=== PATIENT | male | born 1945 | race Two or more races ===

== ENCOUNTER 2025-05-09 08:45 | Outpatient (CLI) | payer MEDICAID ==
[2025-05-09 09:11] LABS: Hematocrit 43.9 % (41.0-53.0); Hemoglobin 14.7 g/dL (13.5-17.5); Mean Corpuscular Hemoglobin 31.3 pg (28.0-32.0); Mean Corpuscular Volume 93.3 fL (80.0-100.0); Nucleated Red Blood Cells % 0.0 %
[2025-05-09 09:17] LABS: Urine Protein, UAD Negative (Negative)
[2025-05-09 09:45] LABS: Alanine Aminotransferase 17 U/L (7-40); Albumin 4.3 g/dL (3.2-4.8); Alkaline Phosphatase 95 U/L (46-116); Anion Gap 8 (5-15); BUN/Creatinine Ratio 17.7 (10.0-20.0); Bilirubin, Total 0.6 mg/dL (0.2-1.0); Blood Urea Nitrogen 14 mg/dL (9-23); Calcium 8.9 mg/dL (8.7-10.4); Carbon Dioxide 26 mmol/L (20-31); Chloride 107 mmol/L (98-107); Cholesterol 139 mg/dL (< 200); HDL Cholesterol 52 mg/dL (40-59); Potassium 4.1 mmol/L (3.5-5.1); Sodium 141 mmol/L (136-145); Total Protein 6.4 g/dL (5.7-8.2); Triglycerides 59 mg/dL (< 150)
[2025-05-09 09:47] LABS: Glucose 147 mg/dL (74-106)
== END 2025-05-09 17:00 | disposition home or self-care (01) ==
LOC: LAB 08:45
PROVIDERS: ATTEND Nurse Practitioner Family
DX: E55.9 Vitamin D deficiency, unspecified (principal); E11.9 Type 2 diabetes mellitus without complications; E03.9 Hypothyroidism, unspecified; E78.5 Hyperlipidemia, unspecified
CPT/HCPCS: 36415; 80053; 80061; 81001; 82306; 83036; 84443; 85025

== ENCOUNTER 2025-05-15 09:19 | Outpatient (CLI) | payer MEDICAID | END 2025-05-15 17:00 | disposition home or self-care (01) | LOC: LAB 09:19 | PROVIDERS: ATTEND Nurse Practitioner Family | DX: Z12.11 Encounter for screening for malignant neoplasm of colon (principal) | CPT/HCPCS: 82270 ==